=== PATIENT | female | born 1960 | race African-American/Black ===

== ENCOUNTER 2018-06-08 06:59 | Day surgery (SDC) | END 2018-06-08 12:54 | disposition home or self-care (01) ==

== ENCOUNTER 2019-01-14 06:31 | Day surgery (SDC) | payer MEDICARE, OTHER ==
[~2019-01-14] VITALS: Ht 175.3 cm; Wt 144.7 kg
[~2019-01-14 06:31] MED LIST: ATOR20TA38 PO; BACI1TAB3 PO; BUPR150T6 PO; BUPR75FI3 BC; CYCL10TA7 PO; ERGO500013 PO; FER325 PO; FURO20TA3 PO; GABA-526 PO; LISI-471 PO; LORA-186 PO; MAGN500C PO; MULT1TAB52 PO; NABU-83 PO; OMEP40CA6 PO; RANI150T5 PO; TRA100 PO
[2019-01-14] MEDS ORDERED: PROPOFOL 200 MG INJ ONE (07:00)
[2019-01-14 07:08] VITALS: Ht 175.3 cm; Wt 144.7 kg
[2019-01-14 07:42] VITALS: BP 120/70; PULSE 83; RESP 14
--- NOTE | 2019-01-14 07:44 | PREAC ---
Date/Time of Note Date/Time of Note DATE: 01/14/19 TIME: 07:43 Anesthesia Eval and Record Evaluation Time Pre-Procedure Interview DATE: 01/14/19 TIME: 07:43 Age 58 Sex female NPO: 8 hrs Preoperative diagnosis abd pain Planned procedure colonoscopy Past Medical History Past Medical History: Includes Cardio: HTN, Dyslipidemia, VT, CHF Endo: Diabetes, Hypothyroid Pulm: Smoking Hx, Sleep Apnea, Asthma Neuro: Peripheral neuropathy Musculoskeletal: Osteoarthritis, Rheumatoid arthritis Renal: CKD Hepatic: Alcohol abuse, Hepatitis GI: GERD, Hiatal hernia, Morbid obesity Heme: Anemia Psych: Depression Surgery & Anesthesia Issues No known issue Meds Anticoagulation: No Beta Jessica within 24 hr: No Reason Beta Jessica not given: Pt. not on B-Jessica Reported Medications Trazodone Hcl* (Trazodone Hcl*) 100 Mg Tablet, 300 MG PO QHS, #30 TAB 06/08/18 Ranitidine Hcl* (Ranitidine Hcl*) 150 Mg Tablet, 150 MG PO HS, #30 TAB 06/08/18 Bacillus Coagulans (Probiotic) 1 Each Tab.chew, 1 EACH PO DAILY, TAB.CHEW 06/08/18 Omeprazole* (Omeprazole*) 40 Mg Capsule.dr, 40 MG PO DAILY, #30 CAP 06/08/18 Nabumetone* (Nabumetone*) 750 Mg Tablet, 750 MG PO BID, TAB 06/08/18 Multivitamin (Chewable-Ata) 1 Each Tab.chew, 1 EACH PO DAILY, TAB.CHEW 06/08/18 Magnesium Oxide (Magnesium) 500 Mg Capsule, 500 MG PO DAILY, CAP 06/08/18 Lisinopril* (Lisinopril*) 20 Mg Tablet, 20 MG PO DAILY, #30 TAB 06/08/18 Gabapentin* (Gabapentin*) 600 Mg Tablet, 600 MG PO TID, #90 TAB 06/08/18 Gabapentin* (Gabapentin*) 600 Mg Tablet, 1800 MG PO QHS, #60 TAB 06/08/18 Furosemide* (Furosemide*) 20 Mg Tablet, 20 MG PO DAILY, #60 TAB 06/08/18 Ferrous Sulfate* (Ferrous Sulfate*) 325 Mg Tabec, 325 MG PO DAILY, TAB 06/08/18 Ergocalciferol (Vitamin D2) (VITAMIN D2) 50,000 Unit Capsule, 07569 UNIT PO Q7D, CAP 06/08/18 Cyclobenzaprine Hcl* (Cyclobenzaprine Hcl*) 10 Mg Tablet, 10 MG PO DAILY, #60 TAB 06/08/18 Loratadine* (Claritin*) 10 Mg Tablet, 10 MG PO DAILY, TAB 06/08/18 Bupropion Hcl* (Bupropion XL*) 150 Mg Tab.er.24h, 150 MG PO DAILY, TAB.SA 06/08/18 Buprenorphine HCl (Belbuca) 75 Mcg Film, 75 MCG BC BID, FILM 06/08/18 Atorvastatin Calcium* (Atorvastatin Calcium*) 20 Mg Tablet, 20 MG PO QHS, #30 TAB 06/08/18 Meds reviewed: Yes Allergies Coded Allergies: No Known Allergy (Unverified , 01/14/19) Allergies Reviewed: Yes Labs/Studies Labs Reviewed: Reviewed by anesthesiologist test: Negative Studies: ECG, CXR Pre-procedure Exam Airway: Adequate mouth opening, Adequate thyromental dist Mallampati: Mallampati IV Teeth: Normal Lung: Normal Heart: Normal ASA Physical Status ASA physical status: 3 Emergency: None Planned Anesthetic General/MAC: MAC Planned Pain Management Parenteral pain med Pre-operative Attestations Prior to commencing anesthesia and surgery, the patient was re-evaluated, there was verification of: *The patient's identity *The results of appropriate recent lab work and preoperative vital signs *The above evaluation not changing prior to induction *Anesthetic plan, risk benefits, alternative and complications discussed with patient/family; questions answered; patient/family understands, accepts and wishes to proceed. TRINITY REDDING MD Jan 14, 2019 07:44
[2019-01-14] MEDS ORDERED: PROPOFOL 60 ML ONE (07:45)
[2019-01-14] MEDS ORDERED: LIDOCAINE 2% (SDV) 5 ML INJ ONE (08:09)
[2019-01-14 08:35] VITALS: BP 126/74; RESP 20
== END 2019-01-14 12:32 | disposition home or self-care (01) ==
LOC: GIL 06:31
PROVIDERS: ATTEND Internal Medicine Gastroenterology
DX: D12.3 Benign neoplasm of transverse colon (principal); I11.0 Hypertensive heart disease with heart failure; I50.9 Heart failure, unspecified; E78.5 Hyperlipidemia, unspecified; E03.9 Hypothyroidism, unspecified; E11.9 Type 2 diabetes mellitus without complications; J45.909 Unspecified asthma, uncomplicated; I25.2 Old myocardial infarction; M06.9 Rheumatoid arthritis, unspecified
CPT/HCPCS: 82962; 88305